=== PATIENT | male | born 1975 | race American Indian/Alaskan Native ===

== ENCOUNTER 2017-12-05 13:31 | Emergency (ER) | payer OTHER ==
[2017-12-05 14:29] VITALS: BP 140/87
--- NOTE | 2017-12-05 15:34 | XRay Report ---
LEFT FINGERS, 3 VIEWS History: Left finger injury. Findings: There is comminution/fragmentation of the middle phalanx of the fifth digit. A single metallic screw transverses the middle phalanx of the fifth digit suggesting previous surgery, correlate with history. This apparently represents an acute on chronic injury. Fracture lines extend to the proximal interphalangeal joint and distal interphalangeal joint of the fifth digit. Skin ulceration overlying this area is also seen. Impression: Comminuted fracture of the middle phalanx of fifth digit.
--- NOTE | 2017-12-05 20:01 | Emergency Department Report ---
Upper Extremity - HPI Chief Complaint: Extremity Injury, Upper Stated Complaint: FINGER INJURY Time Seen by Provider: 12/05/17 19:54 Upper Extremity: Left Little Finger Occurred When: >5 Days Mechanism: Hit with Object Severity: severe Symptoms: Yes Pain with Movement, Yes Deformity, Yes Limited Range of Movement, Yes Bruising/Ecchymosis, Yes Laceration or Abrasion, No Numbness, No Weakness, No Swelling Other History: This is a 42 y.o. male that presents with possible infection and discoloration for 2 days from injured left 5th finger. Patient smashed left 5th finger on 10/04/2017 at work. He had surgery at [facility] by Dr. Alie Evans on 10/11/2017, pins placed for 6 weeks. Pins where removed 2 weeks ago. He noticed pus discharge and skin pilled off this morning while cleaning wound on the way to work. He arrived to work and environmental sustainability manager told him to call [facility] for a f/u appointment. He called and they told him to come in at 1300 today. His environmental sustainability manager told him to come to the ER because that is to long to wait. He has f /u appointment December 17 with [facility]. ED Review of Systems ROS: Stated complaint: FINGER INJURY Other details as noted in HPI Constitutional: denies: chills, fever Respiratory: denies: cough, shortness of breath, wheezing Cardiovascular: denies: chest pain, palpitations Gastrointestinal: denies: abdominal pain, nausea, vomiting, diarrhea Musculoskeletal: arthralgia. denies: back pain, joint swelling Skin: other (1 cm exposed bone and hardware of 5th middle digit from old injury) Neurological: denies: headache, weakness, numbness, paresthesias Psychiatric: denies: anxiety, depression ED Past Medical Hx - Past Medical History Previous Medical History?: Yes Hx Asthma: Yes - Surgical History Past Surgical History?: Yes Additional Surgical History: Left 5th digit surgery with instrumentation - Social History Smoking Status: Current Every Day Smoker Substance Use Type: Alcohol, Prescribed - Medications Home Medications: Home Medications Medication Instructions Recorded Confirmed Last Taken Type Albuterol Sulfate [Ventolin HFA] 2 puff IH Q4H PRN #1 hfa.aer.ad 10/04/14 Unknown Rx Amoxicillin [Trimox CAP] 500 mg PO Q8H #40 capsule 10/04/14 Unknown Rx Loratadine [Claritin] 10 mg PO DAILY #30 tablet 10/04/14 Unknown Rx Promethazine /Codeine 5 ml PO Q6H PRN #150 ml 10/04/14 Unknown Rx [Phenergan/Codeine 6.25-10 mg/5 ml] predniSONE [Deltasone] 40 mg PO QDAY #10 tab 10/04/14 Unknown Rx Upper Extremity Exam - Exam General: Vital signs noted. No distress. Alert and acting appropriately. Head and Torso: No HEENT Abnormality, No Neck Tenderness, No Chest/Lungs Abnormality, No Abdominal Tenderness, No Back Tenderness Shoulder Exam: Yes Normal Range of Motion in Shoulder, No Shoulder Tenderness, No Clavicle Tenderness, No Shoulder Deformity, No AC Joint Tenderness Arm Exam: No Arm/Humerus Tenderness, No Arm Deformity Elbow: Yes Normal Range of Motion in Elbow, No Elbow Tenderness, No Elbow Deformity Forearm: No Forearm Tenderness, No Forearm Deformity, No Pain with Pronation, No Pain with Supination Wrist: Yes Normal ROM in Wrist, No Wrist Tenderness, No Wrist Deformity, No Snuffbox Tenderness, No Pain with Axial Thumb Compression Hand: Yes Digit Tenderness (5th medial phalanx), Yes Digit(s) Deformity ( exposed pin and tendon of medial 5th phalanx, ), Yes Tendon Dysfunction, No Hand Tenderness, No Hand Deformity, No Normal ROM in Digit(s) (limited ROM of 5th phalanx) CMS Exam: Yes Normal Distal Pulses, Yes Normal Capillary Refill, Yes Normal Distal Sensation, No Broken Skin ED Course Vital Signs 12/05/17 14:23 Temperature 98.3 F Pulse Rate 90 Respiratory 18 Rate Blood Pressure 140/87 O2 Sat by Pulse 97 Oximetry ED Medical Decision Making - Radiology Data Radiology results: report reviewed Xray of left finger: Comminuted fracture of the middle phalanx of fifth digit. - Medical Decision Making This is a 42 y.o. male presents with infection to surgical site of left 5th phalanx. Denies LOC, chest pain, abdominal pain, SOB, and numbness and tingling. Patient was examined by me. Obtained xray of left finger and read by radiologist. Ordered wound culture. Patient left prior to culture. Called patient and states [facility] called antibiotics in to pharmacy and left a message for him to f/u with them on Saturday. Critical care attestation.: If time is entered above; I have spent that time in minutes in the direct care of this critically ill patient, excluding procedure time. ED Disposition Clinical Impression: Left before treatment completed Fracture of base of fifth metacarpal bone of left hand Qualifiers: Encounter type: initial encounter Fracture type: open Fracture alignment: nondisplaced Qualified Code(s): S62.347B - Nondisplaced fracture of base of fifth metacarpal bone, left hand, initial encounter for open fracture Infected abrasion of fifth toe of left foot Qualifiers: Encounter type: initial encounter Qualified Code(s): S90.415A - Abrasion, left lesser toe(s), initial encounter; L08.9 - Local infection of the skin and subcutaneous tissue, unspecified Disposition: [id number] LEFT AGAINST MED ADVICE Is pt being admited?: No Condition: Stable Referrals: PRIMARY CARE, [Primary Care Provider] - 3-5 Days
== END 2017-12-05 20:27 | disposition left against medical advice (07) ==
LOC: ED 13:31
DX: S62.347B Nondisplaced fracture of base of fifth metacarpal bone, left hand, initial encounter for open fracture (principal); S69.92XA Unspecified injury of left wrist, hand and finger(s), initial encounter; J45.909 Unspecified asthma, uncomplicated; F17.200 Nicotine dependence, unspecified, uncomplicated; S90.415A Abrasion, left lesser toe(s), initial encounter; L08.9 Local infection of the skin and subcutaneous tissue, unspecified
CPT/HCPCS: 99283